=== PATIENT | female | born 1980 | race Hispanic/Latino ===

== ENCOUNTER → 2018-01-14 09:24 | Outpatient (CLI) | payer OTHER, SELFPAY ==
[2018-01-14 10:02] LABS: Add Manual Diff / Slide Review NO; Basophils Percent Auto 0.6 % (0-2); Eosinophils Percent Auto 4.1 % (2-4); Hematocrit 35.7 % (36-46); Hemoglobin 12.1 g/dL (12.0-16.0); Mean Corpuscular HGB Conc 33.8 % (30-36); Mean Corpuscular Hemoglobin 28.5 PG (26-34); Mean Corpuscular Volume 84.2 fL (80-100); Monocytes Percent Auto 4.8 % (3-14); Neutrophils Absolute Auto 3500 /uL (3000-5900); Neutrophils Percent Auto 56.5 % (50-75); Platelet Count 331 X10^3/uL (150-400); Red Blood Cell Count 4.24 X10^6/uL (4.0-5.2); Red Cell Distribution Width 13.6 % (11.6-14.8); White Blood Cell Count 6.1 X10^3/uL (4.5-11.0)
[2018-01-14 10:57] LABS: Alanine Aminotransferase 18 IU/L (9-52); Albumin 4.5 g/dL (3.5-5.0); Albumin Globulin Ratio 1.4 (1.0-2.8); Alkaline Phosphatase 97 U/L (38-126); Aspartate Aminotransferase 16 IU/L (14-36); Bilirubin Total 0.5 mg/dL (0.2-1.3); Blood Urea Nitrogen 15 mg/dL (7-17); Calcium 9.3 mg/dL (8.4-10.2); Carbon Dioxide 25 mmol/L (22-32); Chloride 106 mmol/L (98-107); Cholesterol 210 mg/dL (140-199); Estimated Glomerular Filt Rate > 60.0 mL/min (>60); Globulin 3.2 g/dL (1.7-4.1); Glucose 93 mg/dL (70-100); HDL Cholesterol 42 mg/dL (40-60); HEMOLYSIS < 15 (0-50); LDL Cholesterol Calculated 130 mg/dL (<100); Sodium 145 mmol/L (137-145); Total Protein 7.7 g/dL (6.3-8.2); Triglycerides 191 mg/dL (35-150)
[2018-01-14 11:17] LABS: Thyroid Stimulating Hormone 1.26 uIU/mL (0.47-4.68)
== END ==
PROVIDERS: PCP Family Medicine; Visit Provider Family Medicine
DX: Z00.00 Encounter for general adult medical examination without abnormal findings (principal)
CPT/HCPCS: 36415; 80053; 80061; 84443; 85025

== ENCOUNTER → 2018-03-17 09:25 | Outpatient (CLI) | payer OTHER, SELFPAY ==
[2018-03-17 10:49] LABS: Cholesterol 265 mg/dL (140-199); HDL Cholesterol 44 mg/dL (40-60); LDL Cholesterol Calculated 179 mg/dL (<100); Triglycerides 211 mg/dL (35-150)
== END ==
PROVIDERS: PCP Family Medicine; Visit Provider Family Medicine
DX: E78.2 Mixed hyperlipidemia (principal)
CPT/HCPCS: 36415; 80061

== ENCOUNTER → 2018-03-19 15:13 | Outpatient (CLI) | payer OTHER, SELFPAY ==
--- NOTE | 2018-03-19 15:15 | DI.MG.S_ITS ---
BILATERAL DIGITAL SCREENING MAMMOGRAM 3D/2D WITH CAD: 03/19/2018 CLINICAL: Routine screening. Baseline exam. Family history of breast cancer. No prior exams were available for comparison. The tissue of both breasts is extremely dense, which lowers the sensitivity of mammography. Current study was also evaluated with a Computer Aided Detection (CAD) system. There is architectural distortion in the right breast at 4 o'clock posterior depth. No other significant masses, calcifications, or other findings are seen in either breast. IMPRESSION: INCOMPLETE: NEEDS ADDITIONAL IMAGING EVALUATION The architectural distortion in the right breast is indeterminate. Additional views with possible ultrasound are recommended. This exam was interpreted at Station ID: [id number]. NOTE: For mammograms, a report in lay terms will be sent to the patient. Approximately 15% of breast malignancies will not be visualized mammographically. In the management of a palpable breast mass, a negative mammogram must not discourage biopsy of a clinically suspicious lesion. Electronically Signed By: Christal choudhury/sol:03/19/2018 15:47:47 letter sent: Additional Imaging Needed ACR BI-RADS Category 0: Incomplete 3340F
== END ==
PROVIDERS: PCP Family Medicine; Visit Provider Family Medicine
DX: Z12.31 Encounter for screening mammogram for malignant neoplasm of breast (principal); Z80.3 Family history of malignant neoplasm of breast
CPT/HCPCS: 77063; 77067

== ENCOUNTER → 2018-04-13 14:12 | Outpatient (CLI) | payer OTHER, SELFPAY ==
--- NOTE | 2018-04-13 | DI.MG.S_ITS ---
UNILATERAL RIGHT DIGITAL DIAGNOSTIC MAMMOGRAM 3D/2D WITH ADDITIONAL VIEWS: 04/13/2018 CLINICAL: Additional evaluation requested from prior study. Family history of breast cancer. Comparison is made to exam dated: 03/19/2018 [facility]. The tissue of right breast is extremely dense, which lowers the sensitivity of mammography. The architectural distortion in the right breast at 4 o'clock middle depth is not seen in additional views. No other significant masses or calcifications are seen in the breast. IMPRESSION: There is no mammographic evidence of malignancy. A 3 year screening mammogram is recommended. This exam was interpreted at Station ID: [id number]. NOTE: For mammograms, a report in lay terms will be sent to the patient. Approximately 15% of breast malignancies will not be visualized mammographically. In the management of a palpable breast mass, a negative mammogram must not discourage biopsy of a clinically suspicious lesion. Electronically Signed By: Christal choudhury/:04/13/2018 14:56:15 letter sent: Normal Exam ACR BI-RADS Category 2: Benign Finding(s) 3342F
== END ==
PROVIDERS: PCP Family Medicine; Visit Provider Family Medicine
DX: R92.8 Other abnormal and inconclusive findings on diagnostic imaging of breast (principal); Z80.3 Family history of malignant neoplasm of breast
CPT/HCPCS: 77065; G0279

== ENCOUNTER → 2020-02-24 08:38 | Outpatient (CLI) | payer OTHER, SELFPAY ==
[2020-02-24 09:55] LABS: Add Manual Diff / Slide Review NO; Basophils Absolute Auto 0 /uL (0-100); Basophils Percent Auto 0.5 % (0-2); Eosinophils Absolute Auto 100 /uL (0-450); Eosinophils Percent Auto 2.2 % (2-4); Hemoglobin 12.1 g/dL (12.0-16.0); Lymphocytes Absolute Auto 2300 /uL (1100-4500); Lymphocytes Percent Auto 40.2 % (25-40); Mean Corpuscular HGB Conc 32.7 % (30-36); Mean Corpuscular Hemoglobin 27.9 PG (26-34); Mean Corpuscular Volume 85.3 fL (80-100); Monocytes Absolute Auto 300 /uL (0-900); Monocytes Percent Auto 4.9 % (3-14); Neutrophils Absolute Auto 3000 /uL (1500-7000); Neutrophils Percent Auto 52.2 % (50-75); Platelet Count 342 X10^3/uL (150-400); Red Blood Cell Count 4.33 X10^6/uL (4.0-5.2); Red Cell Distribution Width 13.1 % (11.6-14.8); White Blood Cell Count 5.7 X10^3/uL (4.5-11.0)
[2020-02-24 10:46] LABS: Alanine Aminotransferase 17 IU/L (<35); Albumin 4.3 g/dL (3.5-5.0); Albumin Globulin Ratio 1.5 (1.0-2.8); Alkaline Phosphatase 70 U/L (38-126); Aspartate Aminotransferase 19 IU/L (14-36); BUN Creatinine Ratio 35.8 (6-22); Bilirubin Total 0.4 mg/dL (0.2-1.3); Blood Urea Nitrogen 19 mg/dL (7-17); Calcium 9.4 mg/dL (8.4-10.2); Carbon Dioxide 27 mmol/L (22-32); Chloride 106 mmol/L (98-107); Cholesterol 181 mg/dL (140-199); Estimated Glomerular Filt Rate > 60.0 mL/min (>60); Globulin 2.9 g/dL (1.7-4.1); Glucose 87 mg/dL (70-100); HDL Cholesterol 36 mg/dL (40-60); HEMOLYSIS < 15 (0-50); LDL Cholesterol Calculated 124 mg/dL (<100); Potassium 4.1 mmol/L (3.4-5.1); Sodium 140 mmol/L (137-145); Total Protein 7.2 g/dL (6.3-8.2); Triglycerides 106 mg/dL (35-150); Vitamin D 25 Hydroxy (D3) 33.4 ng/mL (30.0-100.0)
== END ==
PROVIDERS: PCP Family Medicine; Referring Provider Family Medicine; Visit Provider Family Medicine
DX: D64.9 Anemia, unspecified (principal); K76.0 Fatty (change of) liver, not elsewhere classified
CPT/HCPCS: 36415; 80053; 80061; 82306; 84443; 85025

== ENCOUNTER → 2020-04-13 16:39 | Outpatient (CLI) | payer OTHER, SELFPAY ==
--- NOTE | 2020-04-13 | DI.MG.S_ITS ---
BILATERAL DIGITAL SCREENING MAMMOGRAM 3D/2D WITH CAD: 04/13/2020 CLINICAL: Routine screening. Family history of breast cancer. Comparison is made to exams dated: 04/13/2018 mammogram and 03/19/2018 mammogram - [facility]. The tissue of both breasts is extremely dense, which lowers the sensitivity of mammography. Current study was also evaluated with a Computer Aided Detection (CAD) system. No significant masses, calcifications, or other findings are seen in either breast. There has been no significant interval change. IMPRESSION: NEGATIVE There is no mammographic evidence of malignancy. A 1 year screening mammogram is recommended. This exam was interpreted at Station ID: [id number]. NOTE: For mammograms, a report in lay terms will be sent to the patient. Approximately 15% of breast malignancies will not be visualized mammographically. In the management of a palpable breast mass, a negative mammogram must not discourage biopsy of a clinically suspicious lesion. Electronically Signed By: Christal choudhury/sol:04/13/2020 16:59:56 letter sent: Normal Exam ACR BI-RADS Category 1: Negative 3341F
== END ==
PROVIDERS: PCP Family Medicine; Referring Provider Family Medicine; Visit Provider Family Medicine
DX: Z12.31 Encounter for screening mammogram for malignant neoplasm of breast (principal); Z80.3 Family history of malignant neoplasm of breast
CPT/HCPCS: 77063; 77067

== ENCOUNTER → 2021-01-19 11:16 | Outpatient (CLI) | payer OTHER, SELFPAY ==
[2021-01-19 11:53] LABS: COVID19 -Nasal RAPID Negative (Negative)
== END ==
PROVIDERS: PCP Family Medicine; Visit Provider Physician Assistant
DX: Z20.822 Contact with and (suspected) exposure to COVID-19 (principal); J02.9 Acute pharyngitis, unspecified; R52 Pain, unspecified
CPT/HCPCS: 87635

== ENCOUNTER 2022-04-21 00:49 | Emergency (ER) | payer OTHER, SELFPAY ==
--- NOTE | 2022-04-21 00:58 | ED_ITS ---
HPI - General Adult General Chief complaint: Abdominal Pain Stated complaint: abd pain, n/v/d Time Seen by Provider: 04/21/22 00:53 History of Present Illness HPI narrative: 41-year-old woman with history of anxiety controlled with Zoloft presents with upper abdominal pain has been notable for the last 48 hours getting worse this evening beginning to radiate from the epigastrium up into her chest and back to her shoulder blades. She notes a Pepto-Bismol has been helpful in controlling the pain and has also turn her stools black. She is having dry heaving but has not been able to keep enough fluids or solids down actually have any overt emesis. When symptoms started she had profuse watery diarrhea that has slowed to simple diarrhea at this time. She is not had any fevers but she does complain low-grade headache, myalgias and cough. She notes that over last month she is had upper respiratory type symptoms. She reports no palpitations, no lower extremity edema. She has never had ulcer or gallbladder issues. Does not regularly use ibuprofen and has minimal alcohol intake Related Data Previous Rx's Medication Instructions Recorded levocetirizine 5 mg tablet 5 mg PO QDAY #30 tabs 01/10/16 valacyclovir 1 gram tablet 2,000 mg PO Q12H #4 tabs 06/14/19 alprazolam 0.5 mg tablet See Rx Instructions .Route 03/26/20 .COMPLEX #30 tabs sertraline 100 mg tablet See Rx Instructions .Route 01/28/21 .COMPLEX #90 tabs Allergies Allergy/AdvReac Type Severity Reaction Status Date / Time No Known Drug Allergies Allergy Verified 01/19/21 11:29 Review of Systems Review of Systems Narrative: Remainder of complete review of systems is otherwise unremarkable except for t hat included in the HPI. Patient History Medical History Anxiety (01/10/16) Social History Smoking Status: Never smoker Smoking Status: Never smoker Exam Initial Vital Signs Initial Vital Signs: Vital Signs Temperature 98.8 F 04/21/22 01:26 Pulse Rate 76 04/21/22 01:26 Respiratory Rate 18 04/21/22 01:26 Blood Pressure 144/78 H 04/21/22 01:26 Pulse Oximetry 97 04/21/22 01:26 Oxygen Delivery Method 04/21/22 01:26 General: Healthy appearing, in no acute distress. Able to give a complete and coherent history. Well-nourished well-developed HEENT: Moist mucous membranes, normal sclera with reactive pupils, Neck: No cervical adenopathy supple Respiratory: Lungs are clear to auscultation, no wheezing no rales no rhonchi. Full and symmetrical air movement Cardiac: Regular rate and rhythm no murmurs no bruits Abdomen: Soft, moderate midepigastric tenderness without rebound or guarding,, good bowel tones, no flank pain Skin: Warm and dry, no rashes Neurologic: Grossly neurologically intact with no obvious asymmetries or abnormalities Extremities: No trauma, well perfused Psych: Cooperative, appropriate insight and affect Course Orders Ordered: ED Orders 04/21/22 01:05 Respiratory Panel (Film Array) Stat 04/21/22 01:15 Complete Blood Count AUTO DIFF Stat Comprehensive Metabolic Panel Stat Lipase Stat Magnesium Stat 04/21/22 02:48 CT abdomen pelvis w con Stat Discontinued Medications Sodium Chloride (Normal Saline 0.9%) 1,000 mls @ 1,000 mls/hr IV BOLUS ONE Stop: 04/21/22 02:03 Last Infusion: 04/21/22 03:24 Dose: 0 mls/hr Documented By: Admin: 04/21/22 01:37 Dose: 1,000 mls/hr Documented By: ARGELIA Ketorolac Tromethamine (Ketorolac 60 Mg/2 Ml Vial) 15 mg IV NOW ONE Stop: 04/21/22 02:51 Last Admin: 04/21/22 03:49 Dose: Not Given Documented By: CHIDI Ketorolac Tromethamine (Ketorolac 30 Mg/Ml Vial) 15 mg IV NOW ONE Stop: 04/21/22 03:13 Last Admin: 04/21/22 03:18 Dose: 15 mg Documented By: CHIDI Ondansetron HCl (Ondansetron 4 Mg/2 Ml Inj) 4 mg IV NOW ONE Stop: 04/21/22 01:05 Last Admin: 04/21/22 01:37 Dose: 4 mg Documented By: ARGELIA Pantoprazole Sodium (Pantoprazole 40 Mg Vial) 20 mg IV NOW ONE Stop: 04/21/22 01:05 Last Admin: 04/21/22 01:37 Dose: 20 mg Documented By: ARGELIA Vital Signs Vital signs: Vital Signs - 8 hr 04/21/22 01:26 Temperature 98.8 F Pulse Rate 76 Respiratory Rate 18 Blood Pressure 144/78 H Pulse Oximetry 97 Oxygen Delivery Method Room Air Medical Decision Making Lab Data Result diagrams: 04/21/22 01:15 04/21/22 01:15 Labs: Lab Results 04/21/22 04/21/22 04/21/22 Range/Units 01:05 01:15 01:15 WBC 7.4 (4.5-11.0) X10^3/uL RBC 4.23 (4.0-5.2) X10^6/uL Hgb 11.6 L (12.0-16.0) g/dL Hct 35.1 L (36-46) % MCV 82.9 (80-100) fL MCH 27.3 (26-34) PG MCHC 33.0 (30-36) % RDW 13.6 (11.6-14.8) % Plt Count 351 (150-400) X10^3/uL Neut % (Auto) 51.7 (50-75) % Lymph % (Auto) 37.7 (25-40) % Hitchcock % (Auto) 8.2 (3-14) % Eos % (Auto) 1.7 L (2-4) % Baso % (Auto) 0.7 (0-2) % Neut # (Auto) 3800 (5304-6884) /uL Lymph # (Auto) 2800 (1012-7395) /uL Hitchcock # (Auto) 600 (0-900) /uL Eos # (Auto) 100 (0-450) /uL Baso # (Auto) 0 (0-100) /uL Sodium 138 (137-145) mmol/L Potassium 3.2 L (3.4-5.1) mmol/L Chloride 103 (98-107) mmol/L Carbon Dioxide 24 (22-32) mmol/L BUN 8 (7-17) mg/dL Creatinine 0.57 (0.52-1.04) mg/dL Estimated GFR > 60 (>60) mL/min BUN/Creatinine Ratio 14.0 (6-22) Glucose 105 H (70-100) mg/dL Calcium 8.5 (8.4-10.2) mg/dL Magnesium 1.6 (1.6-2.3) mg/dL Total Bilirubin 0.3 (0.2-1.3) mg/dL AST 40 H (14-36) IU/L ALT 45 H (<35) IU/L Alkaline Phosphatase 103 (38-126) U/L Total Protein 7.7 (6.3-8.2) g/dL Albumin 4.2 (3.5-5.0) g/dL Globulin 3.5 (1.7-4.1) g/dL Albumin/Globulin Ratio 1.2 (1.0-2.8) Lipase 88 (23-300) U/L Chlamy pneumoniae PCR Not detected (Not Detect) Adenovirus (PCR) Not detected (Not Detect) B. pertussis DNA (PCR) Not detected (Not Detecte) B.parapertussis DNA PCR Not detected (Not Detecte) Coronavirus OC43 (PCR) Not detected (Not Detect) Coronavirus HKU1 (PCR) Not detected (Not Detect) Coronavirus 229E (PCR) Not detected (Not Detect) SARS-CoV-2 (PCR) Not detected (Not Detecte) Coronavirus NL63 (PCR) Not detected (Not Detect) Human Metapneumovir PCR Not detected (Not Detect) Influenza Type A (PCR) Not detected (Not Detect) Influenza Type B (PCR) Not detected (Not Detect) M. pneumoniae (PCR) Not detected (Not Detect) Parainfluenza 1 (PCR) Not detected (Not Detect) Parainfluenza 2 (PCR) Not detected (Not Detect) Parainfluenza 3 (PCR) Not detected (Not Detect) Parainfluenza 4 (PCR) Not detected (Not Detect) RSV (PCR) Not detected (Not Detect) Entero/Rhino (PCR) Not detected (Not Detect) Imaging Data CT scan - abdomen/pelvis: Radiologist's Impression: Possible enteritis, no bowel obstruction, hepatic steatosis Cory Peña MD [facility] Narrative Medical decision making narrative: 41-year-old woman presents with acute upper abdominal pain with significant dry heaving and diarrhea. Differential includes viral etiology, pancreatitis, cholecystitis, gastritis or gastric ulcer, perforated viscus, pancreatic masses, internal hernia, colitis Labs do not suggest significant bacterial etiology however she does have a slight increase in liver function studies. No evidence of GI bleeding. Given her pain and the slight bump in LFTs will proceed with CT of the abdomen. 425am patient is re-examined. She is sleeping soundly and quite comfortably. Pain is significantly better. CT scan suggests possible enteritis but no acute surgical pathology. Recommended conservative management at this time reviewed all labs and findings patient, questions were answered and patient is safe for discharge home Discharge Plan Departure Patient Disposition: Home Clinical Impression: Enteritis Instructions: DI for Viral Gastroenteritis -- Adult Activity Restrictions/Additional Instructions: Thank you for coming in today I did not find any life-threatening explanation for your abdominal pain. This does not appear to be an acute bacterial infection and you do not need antibiotics. There is no evidence of a surgical emergency. I am not finding any sign of severe ulceration, pancreatitis, gallbladder issues. I suspect that your symptoms will resolve over the next 24-48 hours. And recommend keeping yourself well hydrated and eating very simple foods that are easy to digest. If you find that you are getting worse or develop any new symptoms, please feel free to return to the emergency department for further evaluation. Prescriptions: No Action levocetirizine 5 MG tablet 5 mg PO QDAY Qty: 30 11RF valacyclovir 1 gram tablet 2,000 mg PO Q12H Qty: 4 1RF alprazolam 0.5 mg tablet See Rx Instructions .ROUTE .COMPLEX Qty: 30 0RF Dose Instruction: TAKE 1 TABLET BY MOUTH EVERY 6 HOURS NEEDED Rx Instructions: TAKE 1 TABLET BY MOUTH EVERY 6 HOURS NEEDED sertraline 100 mg tablet See Rx Instructions .ROUTE .COMPLEX Qty: 90 3RF Dose Instruction: TAKE 1 TABLET BY MOUTH DAILY. FOLLOW UP WITH PCP BEFORE ANY FUTURE FILLS.PLEASE Rx Instructions: TAKE 1 TABLET BY MOUTH DAILY. Referrals: Niko Leger MD [Primary Care Provider] -
[2022-04-21 01:26] VITALS: BP 144/78; PULSE 76; RESP 18; TEMP 37.1; O2SAT 97; BMI 35.6
[2022-04-21 01:35] LABS: Add Manual Diff / Slide Review NO; Basophils Absolute Auto 0 /uL (0-100); Basophils Percent Auto 0.7 % (0-2); Eosinophils Absolute Auto 100 /uL (0-450); Eosinophils Percent Auto 1.7 % (2-4); Hematocrit 35.1 % (36-46); Hemoglobin 11.6 g/dL (12.0-16.0); Lymphocytes Absolute Auto 2800 /uL (1100-4500); Lymphocytes Percent Auto 37.7 % (25-40); Mean Corpuscular Hemoglobin 27.3 PG (26-34); Mean Corpuscular Volume 82.9 fL (80-100); Monocytes Absolute Auto 600 /uL (0-900); Monocytes Percent Auto 8.2 % (3-14); Neutrophils Absolute Auto 3800 /uL (1500-7000); Neutrophils Percent Auto 51.7 % (50-75); Platelet Count 351 X10^3/uL (150-400); Red Blood Cell Count 4.23 X10^6/uL (4.0-5.2); Red Cell Distribution Width 13.6 % (11.6-14.8); White Blood Cell Count 7.4 X10^3/uL (4.5-11.0)
[2022-04-21] MEDS: PANTOPRAZOLE 40 MG VIAL 20 MG IV (01:37)
[2022-04-21] MEDS: ONDANSETRON 4 MG/2 ML INJ IV (01:37)
[2022-04-21] MEDS: SODIUM CHLORIDE 0.9% 1,000 ML 1000 ML IV (01:37)
[2022-04-21 01:40] LABS: Alanine Aminotransferase 45 IU/L (<35); Albumin 4.2 g/dL (3.5-5.0); Albumin Globulin Ratio 1.2 (1.0-2.8); Alkaline Phosphatase 103 U/L (38-126); Aspartate Aminotransferase 40 IU/L (14-36); Bilirubin Total 0.3 mg/dL (0.2-1.3); Blood Urea Nitrogen 8 mg/dL (7-17); Calcium 8.5 mg/dL (8.4-10.2); Carbon Dioxide 24 mmol/L (22-32); Chloride 103 mmol/L (98-107); Estimated Glomerular Filt Rate > 60 mL/min (>60); Globulin 3.5 g/dL (1.7-4.1); Glucose 105 mg/dL (70-100); HEMOLYSIS 33 (0-50); Lipase 88 U/L (23-300); Magnesium 1.6 mg/dL (1.6-2.3); Potassium 3.2 mmol/L (3.4-5.1); Sodium 138 mmol/L (137-145); Total Protein 7.7 g/dL (6.3-8.2)
[2022-04-21 02:17] LABS: Adenovirus Not Detected (Not Detect); B. parapertussis Not Detected (Not Detecte); Bordetella pertussis Not Detected (Not Detecte); Chlamydophila pneumoniae Not Detected (Not Detect); Coronavirus 229E Not Detected (Not Detect); Coronavirus HKU1 Not Detected (Not Detect); Coronavirus NL 63 Not Detected (Not Detect); Coronavirus OC43 Not Detected (Not Detect); Human Metapneumovirus Not Detected (Not Detect); Human Rhinovirus/Enterovirus Not Detected (Not Detect); Influenza A Not Detected (Not Detect); Influenza B Not Detected (Not Detect); Mycoplasma pneumoniae Not Detected (Not Detect); Parainfluenza Virus 1 Not Detected (Not Detect); Parainfluenza Virus 2 Not Detected (Not Detect); Parainfluenza Virus 3 Not Detected (Not Detect); Parainfluenza Virus 4 Not Detected (Not Detect); Respiratory Syncytial Virus Not Detected (Not Detect); SARS- CoV-2 Not Detected (Not Detecte)
--- NOTE | 2022-04-21 02:48 | DI.CT.S_ITS ---
PROCEDURE: CT ABDOMEN PELVIS W CON INDICATIONS: upper abdominal pain, nausea vomiting diarrhea TECHNIQUE: After the administration of IV contrast, axial sections were acquired from the lung bases to the pubic symphysis. Coronal and sagittal reformats were performed. For radiation dose reduction, the following was used: automated exposure control, adjustment of mA and/or kV according to patient size. COMPARISON: None. FINDINGS: Image quality: Excellent. Lung bases: Unremarkable. Heart: No significant findings. ABDOMEN: Liver: Diffuse fatty infiltration of the liver can be seen. The liver is enlarged. No focal suspicious liver lesions are seen. Gallbladder: Unremarkable. Biliary ducts: Unremarkable. Pancreas: Unremarkable. Spleen: Unremarkable. Adrenal Glands: Unremarkable. Kidneys and Ureters: Unremarkable. Stomach and Bowel: Mild wall thickening can be seen involving several jejunal loops. Stomach, small bowel loops, and colon are otherwise unremarkable. A normal appendix is seen. Peritoneum: No abnormal intraperitoneal fluid. No free air. Ventral Wall: No hernia. Abdominal Nodes: No retroperitoneal or mesenteric adenopathy by size criteria. Vessels: Aorta and inferior vena cava are normal in size. PELVIS: Pelvic Organs: The uterus appears normal for age. No adnexal masses are seen. Bladder: Unremarkable. Pelvic Nodes: No enlarged lymph nodes. Miscellaneous: There is a fat containing left inguinal hernia. Bones: Unremarkable. IMPRESSION: There is mild wall thickening seen involving several jejunal loops. Please consider enteritis. Additional findings: Enlarged, fatty liver Normal appendix Fat containing left inguinal hernia Note: No significant discrepancy from the preliminary report. Dictated by: Pee Mejia M.D. on 04/21/2022 at 7:59 Approved by: Pee Mejia M.D. on 04/21/2022 at 8:02
[2022-04-21] MEDS: KETOROLAC 30 MG/ML VIAL 15 MG IV (03:18)
== END 2022-04-21 04:34 | disposition home or self-care (01) ==
PROVIDERS: Emergency Provider Emergency Medicine; PCP Family Medicine
DX: K52.9 Noninfective gastroenteritis and colitis, unspecified (principal); R07.9 Chest pain, unspecified
CPT/HCPCS: 74177; 80053; 83690; 83735; 85025; 87633; 96361; 96374; 96375; 99283; 99284; C9113; J1885; J2405; Q9967

== ENCOUNTER → 2023-03-26 08:49 | Outpatient (CLI) | payer OTHER, SELFPAY ==
--- NOTE | 2023-03-26 | DI.MG.S_ITS ---
BILATERAL DIGITAL SCREENING MAMMOGRAM 3D/2D WITH CAD: 03/26/2023 CLINICAL: Routine screening. Family history of breast cancer. Comparison is made to exams dated: 04/13/2020 mammogram, 04/13/2018 mammogram, and 03/19/2018 mammogram - [facility]. Both breasts are extremely dense, which lowers the sensitivity of mammography (category d />75% glandular tissue). Current study was also evaluated with a Computer Aided Detection (CAD) system. No significant masses, calcifications, or other findings are seen in either breast. There has been no significant interval change. IMPRESSION: NEGATIVE There is no mammographic evidence of malignancy. A 1 year screening mammogram is recommended. Based on Tyrer-Cuzick model (a risk assessment model), the patient's lifetime risk is 22.6% and her 10 year risk is 3.6%. If a patient has an elevated risk, a more comprehensive evaluation should be considered and/or a referral to a genetic counselor. The [place] [employer], [place] [employer], and NCCN Guidelines advise the consideration of Breast MRI as an adjunct to screening mammography in patients whose Lifetime risk to develop breast cancer is 20% or higher. This exam was interpreted at Station ID: [id number]. NOTE: For mammograms, a report in lay terms will be sent to the patient. Approximately 15% of breast malignancies will not be visualized mammographically. In the management of a palpable breast mass, a negative mammogram must not discourage biopsy of a clinically suspicious lesion. Electronically Signed By: En cruz/sol:03/26/2023 10:54:03 letter sent: Normal Exam ACR BI-RADS Category 1: Negative 3341F
== END ==
PROVIDERS: Referring Provider Obstetrics & Gynecology; Visit Provider Obstetrics & Gynecology
DX: Z12.31 Encounter for screening mammogram for malignant neoplasm of breast (principal); Z80.3 Family history of malignant neoplasm of breast
CPT/HCPCS: 77063; 77067

== ENCOUNTER 2023-04-16 08:47 | Day surgery (SDC) | payer OTHER, SELFPAY ==
[2023-04-13 07:45] VITALS: BMI 27.6
[2023-04-16] VITALS (12 sets, daily range): BP systolic 105–122; BP diastolic 63–75; PULSE 63–95; RESP 12–20; TEMP 36.2–37.1; O2SAT 96–100; BMI 27.6; BMI 29.5
--- NOTE | 2023-04-16 | PATH_ITS ---
[facility] Accession Number: [id number] No. of containers..01 Tissue . 01 Material submitted: . uterus - UTERUS BILATERAL FALLOPIAN TUBES . 01 Diagnosis: Uterus and Bilateral Fallopian Tubes, Hysterectomy and Bilateral Salpingectomy: Cervix with no diagnostic abnormality. Proliferative endometrium with focal features suggestive of endometrial polyp. Benign leiomyoma, 0.2 cm. Bilateral fallopian tubes with benign paratubal cysts. Negative for squamous intraepithelial lesion, atypical hyperplasia or malignancy. MRV 04/24/2023 1518 Local . 01 Electronically signed: . Phill Morales MD, PhD, Pathologist NPI- [id number] . 01 Gross description: . The specimen is received in formalin labeled with the patient's name, , and uterus, bilateral fallopian tubes, consists of an intact uterus (89 grams, 8.0 cm superior to inferior, 5.8 cm medial to lateral, 3.9 cm anterior to posterior) with attached cervix (3.5 x 3.4 cm), two detached unoriented fimbriated fallopian tubes (5.6 x 0.7 cm and 3.2 x 0.4 cm), and no additional adnexa. The ectocervix is pink-fuller, smooth and glistening with a slit-like os measuring 0.7 cm in diameter. The anterior paracervical margin is inked blue while the posterior paracervical margins is inked black. The serosa is fuller and smooth with no evidence of hemorrhage or adhesion identified. The endocervical canal has fuller herringbone mucosa and measures 2.7 cm in length. The endometrial cavity measures 1.7 cm from cornu to cornu and 4.0 cm in length with pink-fuller velvety endometrium that averages 0.2 cm thick with no lesions identified. The myometrium is pink-fuller and trabecular, measuring up to 2.0 cm in maximum thickness with a single small well-circumscribed nodule measuring 0.2 cm in greatest dimension. No additional lesions are identified. . Both fallopian tubes have violaceous smooth serosa with multiple cystic structures measuring up to 0.5 cm in greatest dimension filled with cloudy serous fluid. Sectioning reveals unremarkable stellate lumens. . [employer]ist sections are submitted as follows: A1: Anterior cervix. A2: Posterior cervix. A3: Anterior full thickness section. A4: Posterior full thickness section. A5: Serosa. A6: Nodule. A7: Longer fallopian tube to include one-half of bisected fimbriae and cross sections. A8: Corona fallopian tube to include one-half of bisected fimbriae and cross sections. ([id number]) /MRV 04/17/2023 1058 Local . 01 Pathologist provided ICD-10: N92.0, Z87.410 . 01 CPT . 637569 Specimen Comment: A courtesy copy of this report has been sent to [phone] Performed at: 01 [facility] [address] [place] [address], [place], [place] [id number] MD Guanaco De Luna MD Phone: [phone]
[2023-04-16] MEDS: LACTATED RINGERS 1,000 ML 84 ML IV ×2 (09:28→11:54)
--- NOTE | 2023-04-16 09:30 | PM.PREOP ---
Pre-operative Note COVID-19 COVID-19 status: Not tested Interval Note History & Physical reviewed/Exam performed by Physician: Yes Changes to H&P: No
[2023-04-16] MEDS: SCOPOLAMINE 1 PATCH TOP (10:08)
[2023-04-16] MEDS: CEFAZOLIN 2 GM/100 ML PREMIX 100 ML IV (10:19)
--- NOTE | 2023-04-16 10:34 | SUR.OPER ---
Lithotomy on padded OR bed. Adeline Pad Positioner under torso. Head on pillow, arms padded and tucked at sides. Legs secured in padded yellow fins stirrups.
[2023-04-16] MEDS: BUPIVACAINE 0.5% (PF) 30 ML, EPINEPHrine 0.15 MG INJ (10:42)
[2023-04-16] MEDS: ROPIVACAINE 0.5% PF 5 MG/ML 20ML VIAL 10 ML INJ (10:49)
[2023-04-16] MEDS: ACETAMINOPHEN IV 1,000 MG/100 ML VIAL 400 MG IV (11:54)
--- NOTE | 2023-04-16 12:39 | PM.GYNOP.1 ---
Operative Date/Time/Diagnoses Date of procedure: 04/16/23 Time of procedure: 10:50 Pre-op diagnosis: Menorrhagia Intermenstrual bleeding Stress urinary incontinence Post-op diagnosis: same Procedure & Clinicians Procedure: Procedures Operation Date: 04/16/23 09:45 Actual Procedure Side Surgeon p Laparoscopic Assisted Vag Hysterectomy Dakota Ybarra MD s Laparoscopic Salpingectomy, mid urethral sling cystoscopy Bilateral Dakota Yabrra MD Indications: Mary is a 42-year-old , LMP about 2 weeks ago who presents today for evaluation of long history of heavy but extremely painful periods. Patient experienced menarche at age 14 and her menses have always been heavy and painful often times resulting in missed work or missed school when she was younger. Use of oral contraceptives through the years has resulted in decrease of her pain but her menses remain heavy. Over the last 12-18 months however her pain is slightly less with her menses but is now continuous and dull. Associated with that is virtually continuous dark brown discharge in between her periods. She denies postcoital bleeding. Her most recent Pap was 3 weeks ago and aside from a single Pap about 10 years ago that was mildly abnormal and required colposcopy. All of her Paps have been normal and she is never required treatment for abnormal Pap. Patient also recently had a pelvic ultrasound performed 03/17/2023 which showed that the uterus is anteverted normal in size measuring 8.1 x 4.4 x 4.0 cm. The myometrium is described as homogeneous. The endometrium measures 1.1 mm in combined thickness. The endometrial stripe is somewhat heterogenous in appearance suggesting possible products of hemorrhage within the endometrial cavity. There was no or abnormal vascularity present no fibroids noted. The right ovary measures 2.3 x 2.0 x 1.8 cm with a calculated ovarian volume of 4.4 cc. Left ovary measures 3.8 x 2.6 x 1.6 cm with a calculated ovarian volume of 8 cc. The ovaries have normal sonographic appearance and less than 12 follicles can be seen in each ovary. No adnexal masses were seen and no cystic lesions measuring greater than 3 cm are noted. In addition no pathological free or abdominal pelvic fluid is noted. The patient had endometrial sampling by Pipelle which showed no significant abnormalities. 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 After discussion of all options, patient desires to proceed with total laparoscopic hysterectomy with bilateral salpingectomy and mid urethral sling placement with cystoscopy. She presents for her scheduled surgery. Surgeon: Dakota Ybarra Coil Placer: Rosi Rodriguez Anesthesia Type: General Operative Notes Findings: The uterus is normal in size and shape. There were no abnormalities noted in either the anterior or posterior cul-de-sac. Both tubes and ovaries appear normal. The remainder of the abdomen as visualized laparoscopically is also normal. The bladder is unremarkable and shows no evidence of injury. Vigorous jets of clear urine were seen coming from each ureteral meatus at time of cystoscopy Closure Type: primary Specimen(s): left tube, right tube and uterus Applied: catheter Estimated blood loss (mL): 100 Blood products transfused: none Procedure in detail: With the patient in modified dorsal lithotomy position preparations were made by prepping and draping the patient in usual manner for vaginal surgery and insertion of Camejo catheter. A pre-surgical time-out was then taken in accordance with [facility] policy. A bivalve speculum was then placed in the vagina and the cervix visualized. The anterior lip of the cervix was then grasped with a single-tooth tenaculum. The uterus was sounded to [] cm, the endocervical canal dilated slightly, and a VCare uterine manipulator with a [] colpotomy cup was placed. The umbilicus was then infiltrated with 0.5% Marcaine with epinephrine. A 1 cm umbilical incision was made transversely and a Veress needle was used to insufflate the abdominal cavity with carbon dioxide. Once the abdomen was appropriately insufflated, a 5 mm trocar and sleeve were then placed through the umbilical incision. The scope was placed through the trocar and the initial assessment of the intra-abdominal contents carried out. A 2nd and 3rd 5 mm port was then placed 1st in the right mid quadrant from then the left mid quadrant by infiltration of the skin and subcutaneous tissues, a 1 cm transverse incision and insertion of the 5 mm bladeless port. Using a 3 puncture technique, the abdomen and pelvis were inspected laparoscopy and photographically documented. Uterus is mobilized with the VCare manipulator and attention turned to the left adnexa. The distal tube was then grasped and the fimbria varicose divided after coagulation with the PowerSeal device. The dissection was then carried out toward the cornua and the fallopian tube amputated. The tube was removed through a 5 mm port and dissection was then carried down using the PowerSeal device so as to divide the utero-ovarian ligament and the round ligament with blunt and sharp dissection of the broad down to the level of the uterine artery. The uterine artery was then skeletonized after development of a bladder flap, coagulated, and divided. Once hemostasis was assured on the left side attention was turned to the right and the tube, utero-ovarian ligament, round ligament, and broad ligament were dissected in a fashion exactly the same as it had been on the left. The right uterine artery was then visualized after skeletonization and coagulated and divided. The uterus was seen to cinthya after coagulation of both your arteries and the cup was identified through the vaginal muscularis at its insertion with the body of the cervix. Circumferential excision of the vaginal cup was accomplished without difficulty using monopolar current and the uterus mobilized. The uterus was then removed through the vagina and the vaginal cuff closed [id number] with a series of 0 Vicryl [id number] stitches. Hemostasis was excellent, the abdomen was re-insufflated, and the pelvis inspected laparoscopically. The pelvis was inspected for any abnormality or bleeding, and the ureters were each seen to be peristalsing freely. With complete hemostasis assured, the pneumoperitoneum was vented and the ports removed. All of the 5 mm ports were then closed with 4-0 Monocryl on the skin using inverted interrupted sutures. Skin glue was placed and after the glue was dried, an appropriate dressing was applied. Attention was then turned to performance of the tension-free vaginal tape with cystoscopy. A weighted speculum was inserted in the vagina and the anterior vaginal wall inspected. A Camejo catheter was inserted in the bladder and the mid urethra was identified by palpation of the Camejo bulb. Once the mid urethra had been identified, 2 Allis clamps were placed and the area of incision infiltrated with 0.25% Marcaine with epinephrine. A 2 cm longitudinal incision of the vaginal mucosa overlying the mid urethra was then made and using Metzenbaum scissors the dissection was carried lateral on both sides so as to be able to safely introduce the retropubic tension-free vaginal tape. The TVT needle was placed 1st on the right side followed by placement of a left up through the suprapubic skin. The needle tips were brought out through the skin and remained in place while the Camejo catheter was removed and cystoscopy performed with findings as noted above. The TVT needles were then brought up through the suprapubic incisions and removed with suture scissors. The mid urethral sling was then appropriately positioned under the mid urethra and the plastic sleeves removed from the TVT once it was in correct position. The redundant portion TVT material was then excised at the skin line of the suprapubic incisions. Correct positioning of the DVT was then confirmed and the vaginal incision closed with 3-0 chromic in a running locking stitch. Pressure was maintained on the retropubic tissues for 5 minutes so as to reduce the risk subsequent bleeding or bruising. The suprapubic incisions were then closed with skin glue and inappropriate dressing was applied. The case was then terminated, the patient awakened, and then transferred to PACU after having tolerated the procedure well. Complications: none Post-operative Condition: stable Disposition: PACU Plan for aftercare: Recovery in ambulatory surgery in discharge home later today if pain is under control and she is tolerating oral intake well.
[2023-04-16] MEDS: ONDANSETRON 4 MG/2 ML INJ IV ×2 (12:45→17:50)
[2023-04-16] MEDS: OXYCODONE IR 5 MG TABLET PO ×3 (12:47→20:22)
[2023-04-16] MEDS: HYDROMORPHONE 1 MG INJ IV (12:53)
[2023-04-16] MEDS: SERTRALINE 50 MG TABLET PO (13:49)
[2023-04-16] MEDS: LACTATED RINGERS 1,000 ML 100 ML IV (13:49)
[2023-04-16] MEDS: ACETAMINOPHEN 325 MG TABLET 650 MG PO (17:50)
[2023-04-16] MEDS: KETOROLAC 30 MG/ML VIAL IV (18:45)
[2023-04-16] MEDS: DOCUSATE 100 MG CAPSULE 200 MG PO (20:22)
[2023-04-16] MEDS: valACYclovir 500 MG TABLET 2000 MG PO (20:22)
[2023-04-17 00:18] VITALS: BP 110/69; PULSE 54; RESP 16; TEMP 36.8; O2SAT 100
[2023-04-17] MEDS: KETOROLAC 30 MG/ML VIAL IV ×2 (01:07→09:01)
[2023-04-17] MEDS: LACTATED RINGERS 1,000 ML 100 ML IV (01:08)
[2023-04-17 05:29] VITALS: BP 101/57; PULSE 64; RESP 16; TEMP 37; O2SAT 95
[2023-04-17 05:29] LABS: Add Manual Diff / Slide Review NO; Basophils Absolute Auto 0 /uL (0-100); Basophils Percent Auto 0.2 % (0-2); Eosinophils Absolute Auto 0 /uL (0-450); Eosinophils Percent Auto 0.2 % (2-4); Hemoglobin 8.9 g/dL (12.0-16.0); Lymphocytes Absolute Auto 2200 /uL (1100-4500); Lymphocytes Percent Auto 29.7 % (25-40); Mean Corpuscular HGB Conc 34.3 % (30-36); Mean Corpuscular Hemoglobin 28.7 PG (26-34); Mean Corpuscular Volume 83.6 fL (80-100); Monocytes Absolute Auto 500 /uL (0-900); Monocytes Percent Auto 7.4 % (3-14); Neutrophils Absolute Auto 4600 /uL (1500-7000); Neutrophils Percent Auto 62.5 % (50-75); Platelet Count 226 X10^3/uL (150-400); Red Blood Cell Count 3.11 X10^6/uL (4.0-5.2); Red Cell Distribution Width 13.8 % (11.6-14.8); White Blood Cell Count 7.4 X10^3/uL (4.5-11.0)
[2023-04-17] MEDS: ACETAMINOPHEN 325 MG TABLET 650 MG PO (07:00)
--- NOTE | 2023-04-17 07:05 | PC.NURSE ---
Pt unable to void after catheter removed at ~1730. at 2330 Bladder scan was >500ml, and pt straight cath'd per protocol as documented in intake & output. Pt made multiple unsuccessful attempts to void, at at 0600 bladder scan was again >500. This RN contacted Dr. Ybarra & received order for salamanca catheter, and placed it at 0700.
[2023-04-17] MEDS: SERTRALINE 50 MG TABLET PO (09:02)
[2023-04-17] MEDS: DOCUSATE 100 MG CAPSULE 200 MG PO (09:06)
[2023-04-17 09:26] VITALS: BP 97/54; PULSE 48; RESP 18; TEMP 36.7; O2SAT 100
--- NOTE | 2023-04-17 11:01 | P.DS_ITS ---
History of Present Illness History of Present Illness Date Patient Seen: 04/17/23 Time Patient Seen: 11:01 Chief complaint: Total Lap Hysterectomy *OPB* Narrative: Mary is a 42-year-old , LMP about 2 weeks ago who presented for evaluation of long history of heavy but extremely painful periods. Patient experienced menarche at age 14 and her menses have always been heavy and painful often times resulting in missed work or missed school when she was younger. Use of oral contraceptives through the years has resulted in decrease of her pain but her menses remain heavy. Over the last 12-18 months however her pain is slightly less with her menses but is now continuous and dull. Associated with that is virtually continuous dark brown discharge in between her periods. She denies postcoital bleeding. Her most recent Pap was 3 weeks ago and aside from a single Pap about 10 years ago that was mildly abnormal and required colposcopy. All of her Paps have been normal and she is never required treatment for abnormal Pap. Patient also recently had a pelvic ultrasound performed 03/17/2023 which showed that the uterus is anteverted normal in size measuring 8.1 x 4.4 x 4.0 cm. The myometrium is described as homogeneous. The endometrium measures 1.1 mm in combined thickness. The endometrial stripe is somewhat heterogenous in appearance suggesting possible products of hemorrhage within the endometrial cavity. There was no or abnormal vascularity present no fibroids noted. The right ovary measures 2.3 x 2.0 x 1.8 cm with a calculated ovarian volume of 4.4 cc. Left ovary measures 3.8 x 2.6 x 1.6 cm with a calculated ovarian volume of 8 cc. The ovaries have normal sonographic appearance and less than 12 follicles can be seen in each ovary. No adnexal masses were seen and no cystic lesions measuring greater than 3 cm are noted. In addition no pathological free or abdominal pelvic fluid is noted. The patient had endometrial sampling by Pipelle which showed no significant abnormalities. 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 After discussion of all options, patient desires to proceed with total laparoscopic hysterectomy with bilateral salpingectomy and mid urethral sling placement with cystoscopy. She presents for her scheduled surgery. Discharge Providers Provider Discharge Date: 04/17/23 Primary care physician: Karina Del Real DO Discharge provider: Dakota Ybarra MD Summary Hospital Course Discharge Diagnosis: Menorrhagia Severe dysmenorrhea Stress urinary incontinence Hospital Course: Mary was admitted on 04/16/2023 and underwent an uneventful total laparoscopic hysterectomy with bilateral salpingectomy as well as a mid urethral sling placement with cystoscopy. Details of the procedure performed are well summarized on my operative note of that date. Following surgery, the patient has done extremely well with prompt return of bowel function, she is ambulating independently, tolerating a regular diet, and her pain is well controlled with oral pain medications. Despite 2 trials of voiding following removal of her catheter, she was unable to void spontaneously and therefore indwelling catheter was replaced. She will be discharged to home with a catheter in-situ and has been provided with instructions regarding catheter maintenance as well as techniques for its removal on 04/22/2023. She is discharged at this time in an afebrile normotensive condition following counseling regarding precautionary symptoms, limitations of activity, medications, and plans for follow-up which will be in 2 weeks. Medications at discharge will include resumption of all preadmission medications as well as oxycodone 5 mg every 6 hours as needed for pain, dispensed 15 with no refills, and Cipro 500 mg p.o. b.i.d. x7 days for UTI prophylaxis with an indwelling catheter. Status at Discharge Cognitive/behavioral status at discharge: oriented Functional status at discharge: independent ambulation Overall status at discharge: patient is progressing back to baseline Time Spent with Patient Time spent: Less than 30 minutes Exam Vital Signs (past 8 hours): - 04/17/23 05:29 04/17/23 09:26 Temperature 98.6 F 98.1 F Pulse Rate 64 48 L Respiratory Rate 16 18 Blood Pressure 101/57 L 97/54 L Pulse Oximetry 95 100 Oxygen Flow Rate 0 0 Oxygen Delivery Method Room Air Oxygen Flow Rate 0 Const General: cooperative and comfortable Nutritional Appearance: average body habitus Orientation: alert and oriented x3 HENMT Head: normal to inspection, atraumatic and abrasion Ears: hearing grossly normal bilaterally Face and sinus: face symmetric Eyes General: appearance normal, both eyes and all related structures Conjunctivae: conjunctivae normal Sclera: sclerae normal EOM: EOM intact bilaterally Neck Neck: normal visual inspection Resp Effort & Inspection: normal respiratory effort and able to speak in complete sentences Auscultation: clear to auscultation bilaterally Cardio Rate: regular rate Rhythm: regular rhythm Heart Sounds: S1 normal, S2 normal and no murmurs GI Inspection: normal to inspection and incision (Surgical dressings clean and dry) Palpation: soft, no hepatosplenomegaly and tender (Mild, diffuse postsurgical tenderness) External Female Exam: other (No significant bleeding noted) Extrem General: no calf tenderness Psych Appearance: grossly normal Mental Status: mental status grossly normal Speech and Movement: speech and movement normal Mood: congruent mood Affect: normal affect Attitude: cooperative Thought Process: normal Thought Content: normal Judgment: judgment good Objective Labs 04/17/23 05:15 Labs: Laboratory Results - last 24 hr 04/17/23 05:15 WBC 7.4 RBC 3.11 L Hgb 8.9 L Hct 26.0 L MCV 83.6 MCH 28.7 MCHC 34.3 RDW 13.8 Plt Count 226 Neut % (Auto) 62.5 Lymph % (Auto) 29.7 [place] % (Auto) 7.4 Eos % (Auto) 0.2 L Baso % (Auto) 0.2 Neut # (Auto) 4600 Lymph # (Auto) 2200 [place] # (Auto) 500 Eos # (Auto) 0 Baso # (Auto) 0 PFSH Medical History (Updated 04/13/23 @ 07:50 by Marlys Robledo RN) Sleep apnea Anxiety (01/10/16) Social History household members: spouse Smoking Status: Never smoker alcohol intake: current Discharge Assessment & Plan Assessment and Plan Assessment: Menorrhagia Severe dysmenorrhea Stress urinary incontinencPost-operative urinary retention Plan of Treatment: Patient will keep Camejo catheter in place until the morning of 04/22/2023. Patient provided with instructions for removal. Follow-up will be in 2 weeks or as needed. Discharge Plan Discharge Plan Patient Disposition: Home Provider Discharge Comment: Please review the written instructions you received when you were discharged from the hospital. Your follow-up appointment will be scheduled for 2 weeks after your surgery and I look forward to seeing you then. If however in the meanwhile you have any issues, concerns, or questions, please contact me either through the office phone at [phone], or via the patient portal. Your catheter should be removed on the morning of 04/22/2023 per the instructions provided at discharge. Discharge orders & Medications Discharge Orders: Discharge (Order); Ordered 04/17/23 Ordered By: Dakota Ybarra Prescriptions: New oxycodone 5 mg Tablet 5 mg PO Q4HR PRN (Reason: Pain, Moderate (4-6)) Qty: 15 0RF ciprofloxacin HCl [Cipro] 500 mg tablet 500 mg PO BID 7 Days Qty: 14 0RF Continued levocetirizine 5 MG tablet 5 mg PO QDAY Qty: 30 11RF valacyclovir 1 gram tablet 2,000 mg PO Q12H Qty: 4 1RF alprazolam 0.5 mg tablet See Rx Instructions .ROUTE .COMPLEX Qty: 30 0RF Dose Instruction: TAKE 1 TABLET BY MOUTH EVERY 6 HOURS NEEDED Rx Instructions: TAKE 1 TABLET BY MOUTH EVERY 6 HOURS NEEDED sertraline 100 mg tablet See Rx Instructions .ROUTE .COMPLEX Qty: 90 3RF Dose Instruction: TAKE 1 TABLET BY MOUTH DAILY. FOLLOW UP WITH PCP BEFORE ANY FUTURE FILLS.PLEASE Rx Instructions: TAKE 1 TABLET BY MOUTH DAILY. Follow up/Referrals: Karnia Del Real DO [Primary Care Provider] - Dakota Ybarra MD [Physician] - Diet/Activity/Treatments Diet: Diet as Tolerated Activity: As tolerated Catheter: 2-way Camejo Other treatments: Blxq-nmo-aeunten Tylenol and/ibuprofen may be used for additional pain relief. Lekl-zss-olmcwuh stool softeners and/or MiraLax may be used as needed for constipation. Skin/Wound/Dressing Care Report to your healthcare provider any signs of infection, such as:: chills, fever, increased pain, unusual drainage and unusual redness Dressing: Dressings may be removed on the morning of 04/18/2023 Visit Report/Discharge Packet Instructions: DI for Hysterectomy, DI for Laparoscopy, How to Care for Your Camejo Catheter -- Female, DI for Prescription Opioid Use, DI for Urinary Catheter Removal Print Language: Syriac Discharge Data Primary Care Provider: Karina Del Real Attending Provider: Dakota Ybarra Quality VTE Deep Vein Thrombosis/Pulmonary Embolism Present on Admission: No
--- NOTE | 2023-04-17 13:27 | CM.DANOTE ---
DCP Assessment Brief Pt is a 42yo F here following hysterectomy on 04.16.23 PCP Karina Veloz and self pay [employer]OT[employer] reviewed EMR. Per chart review, likely home with spouse once pt can successfully void. Per RN, likely no CM needs. Pt left prior to being seen by this author. No CM needs identified at this time from chart review. Plan: home with family in [place]. No CM needs. QUYEN Cardenas Discharge Planning/Care Management CM Discharge Assessment Start: 04/17/23 13:26 Freq: Status: Active Protocol: Document 04/17/23 13:26 SL (Rec: 04/17/23 13:27 SL [id number]) Discharge Planning Assessment Assigned Pulp Piler QUYEN Whitehead DPOA/Assigned Designee Name Mohan (spouse) Contact Information [phone] Advance Directives? No History Provided By Medical Record Prior Living Arrangements House Household Members spouse Barriers to Discharge No Discharge Plan Home Transportation Arrangement familyin POV Referrals Initiated None needed Whiteboard Updated in Patient Room with No name and ext. # of Pulp Piler Review Status In Process Pre-Anesthesia Assessment Start: 04/13/23 07:45 Freq: Status: Complete Protocol: Document 04/13/23 07:45 CAB (Rec: 04/13/23 07:50 CAB [id number]) Pre-Anesthesia Assessment Patient Information Reviewed Via Chart Review Primary Care Provider Karina Del Real Seen Specialist in Last 12 Months Yes Specialist Seen Emergency,Registered Associate Primary Language Taiwanese Supervisor Rice Milling Required No Height 157.48 cm Weight 68.492 kg Body Mass Index (BMI) 27.6 Hx Anesthesia Reactions LISET - treatment unknown Anesthesia Review Requested No Railcar Switcher No alcohol intake current alcohol intake frequency a few times a week Smoking Status Never smoker Substance Use Type marijuana History of Falling (Recent or History of No ) Patient is completely paralyzed or No completely immobile Mental Status Oriented to own ability Hx Sleep Apnea Yes Sleep apnea treatment Treatment unknown Currently Taking a Beta Robert No Anti-Coagulant Therapy No Cardiac Testing No Hx Pacemaker/ICD No Pacemaker Rep Required? No Genitourinary Symptoms Pelvic Pain Urinary Catheter Present No Hx Urinary Self Catheterization No Diabetes No Patient No Received a COVID vaccine? Yes Marital Status Lives With spouse Patient Discharge Plan Description Return Home Advance Directives? No
== END 2023-04-17 13:00 | disposition home or self-care (01) ==
LOC: OR 08:48 → AC 11:11
PROVIDERS: PCP Obstetrics & Gynecology; Referring Provider Obstetrics & Gynecology; Visit Provider Obstetrics & Gynecology
PROC: 0UT9FZZ Resection of Uterus, Via Natural or Artificial Opening With Percutaneous Endoscopic Assistance (ICD-10-PCS; CPT 58552; principal; 2023-04-16 09:45)
PROC: 0UT74ZZ Resection of Bilateral Fallopian Tubes, Percutaneous Endoscopic Approach (ICD-10-PCS; CPT 58661; 2023-04-16 09:45)
DX: N92.0 Excessive and frequent menstruation with regular cycle (principal); N92.4 Excessive bleeding in the premenopausal period; N39.3 Stress incontinence (female) (male); D25.9 Leiomyoma of uterus, unspecified; N83.8 Other noninflammatory disorders of ovary, fallopian tube and broad ligament
CPT/HCPCS: 58552; 57288; 36415; 85025; C1771; J0131; J0171; J0690; J1170; J1885; J2250; J2405; J2704; J3010

== ENCOUNTER → 2023-04-22 12:38 | Outpatient (CLI) | payer OTHER, SELFPAY ==
[2023-04-16 13:24] VITALS: BMI 29.5
== END ==
PROVIDERS: PCP Obstetrics & Gynecology; Visit Provider Obstetrics & Gynecology
DX: R33.9 Retention of urine, unspecified (principal)
CPT/HCPCS: 87086

== ENCOUNTER → 2023-05-07 14:25 | Outpatient (CLI) | payer OTHER, SELFPAY ==
[2023-04-16 13:24] VITALS: BMI 29.5
[2023-05-07 16:54] LABS: Appearance Urine UA CLEAR; Bilirubin Urine UA NEGATIVE (NEGATIVE); Color Urine UA YELLOW; Glucose Urine UA NEGATIVE (Negative); Ketones Urine UA NEGATIVE (NEGATIVE); Leukocyte Esterase Urine UA NEGATIVE (NEGATIVE); Nitrite Urine UA NEGATIVE (Negative); Occult Blood Urine UA NEGATIVE (Negative); Protein Urine UA NEGATIVE (Negative); Specific Gravity Urine UA <=1.005 (1.000-1.035); Urobilinogen Urine UA 0.2 E.U./dL (0.2)
[2023-05-07 16:57] LABS: pH Urine UA 5.5 (4.5-8.0)
[2023-05-07 17:09] LABS: Bacteria Urine None Seen; RBC Urine 0-1/HPF (0-5/HPF); Squamous Epithelial Cell Urine 1-5 /HPF (0-5/HPF); WBC Urine 0-1/HPF (0-5/HPF)
[2023-05-07 17:10] LABS: Culture Indicated Urine Cult Not Indicated
== END ==
PROVIDERS: PCP Obstetrics & Gynecology; Referring Provider Obstetrics & Gynecology; Visit Provider Obstetrics & Gynecology
DX: N32.81 Overactive bladder (principal)
CPT/HCPCS: 81001; 87086